=== PATIENT | female | born 1965 | race Caucasian/White ===

== ENCOUNTER 2018-03-29 14:18 | Day surgery (SDC) | payer BC ==
[2018-03-29] MEDS ORDERED: LIDOCAINE 1% W/EPI 1:200,000 MPF 30ML SQ ONE (14:19)
--- NOTE | 2018-03-30 06:42 | Operative Note ---
DATE OF SURGERY: 03/29/2018. PREOPERATIVE DIAGNOSIS: STENOSING TENOSYNOVITIS, LEFT MIDDLE FINGER. POSTOPERATIVE DIAGNOSIS: STENOSING TENOSYNOVITIS, LEFT MIDDLE FINGER. PROCEDURE: Left middle finger trigger release. STAFF SURGEON: Jcarlos Sloan M.D. ANESTHESIA: Local. PREPARATION: ChloraPrep. INDIVIDUAL CONSIDERATIONS: None. PROCEDURE: The patient was taken to the operating room and placed supine on the operating table. Her left arm was prepped and draped in the usual fashion. The patient had 1% Lidocaine with epinephrine infiltrated along the A1 kasey volarly. The limb was elevated and the tourniquet was inflated to 250 mmHg. The patient had an incision directly over the A1 kasey. Sharp dissection was carried down through the skin, and blunt dissection was carried down to the kasey. The kasey was then released under direct view proximally and distally. Once it was completely released, I had her move her finger, and the finger no longer triggered. The tourniquet was let down and hemostasis was obtained with compression. The skin was closed with interrupted #4-0 nylon in a vertical mattress fashion, and a sterile bulky compressive hand dressing was applied. The patient tolerated the procedure well. Needle and sponge counts were correct. Estimated blood loss was minimal and she was taken back to Recovery in good condition. There were no complications. JOB NUMBER: [id number] [facility]
== END 2018-03-29 16:50 | disposition home or self-care (01) ==
LOC: SUR 14:18
PROVIDERS: ATTEND Orthopaedic Surgery
DX: M65.332 Trigger finger, left middle finger (principal)